=== PATIENT | female | born 1965 | race Caucasian/White ===

== ENCOUNTER → 2017-04-08 | Outpatient (CLI) | payer OTHER | LOC: RAD 10:18 | DX: M25.562 Pain in left knee (principal) | CPT/HCPCS: 73562 ==

== ENCOUNTER → 2021-03-13 | Outpatient (CLI) | payer OTHER ==
[~2021-03-13] MED LIST: CLEOCIN HCL300 MG PO
== END ==
LOC: KOH-I 10:14
DX: M25.551 Pain in right hip (principal); M25.552 Pain in left hip; M16.0 Bilateral primary osteoarthritis of hip
CPT/HCPCS: 73522

== ENCOUNTER → 2021-04-08 | Outpatient (CLI) | payer OTHER | LOC: EXRD 14:38 | DX: M79.604 Pain in right leg (principal); M79.605 Pain in left leg | CPT/HCPCS: 93925; 93970 ==

== ENCOUNTER → 2021-06-17 | Outpatient (CLI) | payer OTHER | LOC: CT 09:19 | DX: R55 Syncope and collapse (principal) | CPT/HCPCS: 36415; 70470; 82565; Q9967 ==

== ENCOUNTER → 2022-07-14 | Outpatient (CLI) | payer OTHER | LOC: KOH-I 11:04 | DX: M79.604 Pain in right leg (principal); M79.605 Pain in left leg | CPT/HCPCS: 93925 ==